=== PATIENT | female | born 1965 | race Caucasian/White ===

== ENCOUNTER 2016-12-04 21:15 | Emergency (ER) | payer OTHER ==
[2016-12-04 21:50] VITALS: BP 118/91
[2016-12-04 22:27] LABS: Budding Yeast Present (Absent); Urine Bacteria 1+ (Absent); Urine Bilirubin Negative (Negative); Urine Glucose Negative (Negative); Urine Nitrite Negative (Negative)
[2016-12-04] MEDS ORDERED: Sulfamethox/Trimethoprim DS 800/160* TAB PO ONE (22:40)
[2016-12-04] MEDS ORDERED: Phenazopyridine TAB* 100 MG PO ONE ×2 (22:40→22:41)
--- NOTE | 2016-12-04 23:15 | ED ---
GI/ HPI - HPI Summary HPI Summary: Patient presents to ED with burning, urgency, frequency and dark urine x 3 days. She has been trying AZO without relief. States these symptoms have been getting worse, and now is endorsing some right sided back pain. Denies fever, chills or tremors. Has hx of UTI symptoms which improve with antibiotics. She states this is similar to her previous UTI's. Denies erythema around the labia. Denies discharge. No hx of STD, PID or surgeries. - History of Current Complaint Chief Complaint: EDUrogenitalProblems Time Seen by Provider: 12/04/16 22:40 Stated Complaint: BLADDER INFECTION Hx Obtained From: Patient Onset/Duration: Started Days Ago Timing: Intermittent Severity: Moderate Current Severity: Moderate Pain Intensity: 8 Location of Pain: Suprapubic Pain Characteristics: Cramping, Burning Pain Radiates to: Flank - right Associated Signs and Symptoms: Positive: Flank Pain, UTI Symptoms Aggravating Factor(s): Urination Alleviating Factor(s): Nothing - Risk Factors GI Bleed Risk Factor(s): Negative Spontaneous AB Risk Factor(s): Negative Placental Abruption Risk Factor(s): Negative - Allergy/Home Medications Allergies/Adverse Reactions: Allergies Allergy/AdvReac Type Severity Reaction Status Date / Time No Known Allergies Allergy Verified 09/17/14 08:05 PMH/Surg Hx/FS Hx/Imm Hx Previously Healthy: Yes Endocrine/Hematology History: Denies: Hx Diabetes Cardiovascular History: Denies: Hx Hypertension, Hx Pacemaker/ICD Respiratory History: Reports: Other Respiratory Problems/Disorders - HX PNEUMONIA SEVERAL TIMES Denies: Hx Asthma Sensory History: Denies: Hx Hearing Aid Psychiatric History: Denies: Hx Panic Disorder - Surgical History Surgery Procedure, Year, and Place: TONSILS, Infectious Disease History: No Infectious Disease History: Denies: Traveled Outside the [place] in Last 30 Days - Social History Occupation: Employed Full-time Lives: With Family Alcohol Use: Rare Substance Use Type: Reports: None Smoking Status (MU): Never Smoked Tobacco Review of Systems Constitutional: Negative Cardiovascular: Negative Respiratory: Negative Gastrointestinal: Negative Positive: see HPI, burning, frequency, flank pain - right flank, hematuria, pain , urgency Musculoskeletal: Negative Skin: Negative Neurological: Negative Psychological: Normal All Other Systems Reviewed And Are Negative: Yes Physical Exam Triage Information Reviewed: Yes Vital Signs On Initial Exam: Initial Vitals Temp Pulse Resp BP Pulse Ox 97.9 F 73 14 118/91 100 12/04/16 21:43 12/04/16 21:43 12/04/16 21:43 12/04/16 21:43 12/04/16 21:43 Appearance: Positive: Well-Appearing, No Pain Distress Skin: Positive: Warm, Skin Color Reflects Adequate Perfusion Head/Face: Positive: Normal Head/Face Inspection Eyes: Positive: Normal, EOMI, RAMON ENT: Positive: Normal ENT inspection, Hearing grossly normal Neck: Positive: Supple, Nontender Respiratory/Lung Sounds: Positive: Breath Sounds Present Cardiovascular: Positive: Normal Abdomen Description: Positive: Other: - no CVA tenderness bilaterally, no mcburneys point Bowel Sounds: Positive: Present Musculoskeletal: Positive: Normal, Strength/ROM Intact Neurological: Positive: Normal Psychiatric: Positive: Normal Diagnostics - Vital Signs Vital Signs Temp Pulse Resp BP Pulse Ox 12/04/16 21:43 97.9 F 73 14 118/91 100 - Laboratory Lab Results: Lab Results 12/04/16 Range/Units 21:55 Urine Color Yellow Urine Appearance Cloudy Urine pH 5.0 (5-9) Ur Specific Blessing 1.015 (1.010-1.030) Urine Protein 1+(30 mg/dl) H (Negative) Urine Ketones Negative (Negative) Urine Blood 2+ H (Negative) Urine Nitrate Negative (Negative) Urine Bilirubin Negative (Negative) Urine Urobilinogen Negative (Negative) Ur Leukocyte Esterase 3+ H (Negative) Urine WBC (Auto) 3+(>20/hpf) H (Absent) Urine RBC (Auto) 3+(>10/hpf) H (Absent) Urine Bacteria 1+ H (Absent) Urine Yeast Present H (Absent) Urine Glucose Negative (Negative) Urine Ascorbic Acid * H (Negative) Lab Statement: Any lab studies that have been ordered have been reviewed, and results considered in the medical decision making process. GIGU Course/Dx - Course Course Of Treatment: Patient with UTI symptoms and UA showing WBC, leuks and RBC 's. No fever, CVA tenderness or other concerning symptoms for pyelo. Will however treat with 5 days of bactrim instead of 3 d/t RBC's in urine and patient c/o right flank pain. Pyridium given as analgesic. Culture sent. Will follow up if needed for sensitivities. - Diagnoses Differential Diagnoses - Female: Cervicitis, Pyelonephritis, Urinary Tract Infection, Vaginitis Provider Diagnoses: Urinary tract infection - Additional Visit Information Is Visit Related: No Discharge - Discharge Plan Condition: Stable Disposition: HOME Prescriptions: Phenazopyridine TAB* [Pyridium TAB*] 100 mg PO TID #20 tab Sulfamethox/Trimethoprim DS* [Bactrim DS 800/160 TAB*] 1 tab PO BID #10 tab Patient Education Materials: Phenazopyridine (By mouth), Urinary Tract Infection in Women (ED) Referrals: Karen Nelson NP [Primary Care Provider] - Additional Instructions: Dx. Urinary Tract Infection Drink plenty of fluids. Supplement with cranberry or pandey juice. You may also take an over the counter cranberry supplement. If you have any questions about this, you may ask your pharmacist. If your symptoms have not improved in 1- 2 days, you develop a fever or worsening back pain, please return to , the emergency room, or call your PCP. Please take any medications prescribed to you as directed. Pyridium: This medication is used to treat pain, burning, increased urination, and increased urge to urinate. These symptoms are usually caused by infection, injury, surgery, catheter, or other conditions that irritate the lower urinary tract. Pyridium will treat the symptoms of a urinary tract infection, but this medication does not treat the actual infection. Take the antibiotic that your doctor prescribes to treat your infection. Pyridium will most likely darken the color of your urine to an orange or red color. This is a normal effect and is not cause for alarm unless you have other symptoms such as pale or yellowed skin, fever, stomach pain, nausea, and vomiting. Darkened urine may also cause stains to your underwear, which may or may not be removed by laundering. It can also permanently stain soft contact lenses, and you should not wear them while taking this medicine.
--- NOTE | 2016-12-07 14:43 | ED ---
Progress - Progress Note Progress Note: PT'S URINE CX REVEALS ESBL E. COLI - PT DC'D W/ BACTRIM DS TO WHICH ORGANISM IS SENSITIVE - NO MEDICATION CHANGES AT THIS TIME AND F/U DIRECTED. Course/Dx - Course Course Of Treatment: Patient with UTI symptoms and UA showing WBC, leuks and RBC 's. No fever, CVA tenderness or other concerning symptoms for pyelo. Will however treat with 5 days of bactrim instead of 3 d/t RBC's in urine and patient c/o right flank pain. Pyridium given as analgesic. Culture sent. Will follow up if needed for sensitivities. - Diagnoses Provider Diagnoses: Urinary tract infection Is Visit Related: No Addendum entered and electronically signed by Cristiane Ma PA 12/08/16 21: 35: ED Addendum Addendum: final culture shows sensitive to bactrim so can continue
== END 2016-12-04 23:27 | disposition home or self-care (01) ==
LOC: ED 21:15
DX: N39.0 Urinary tract infection, site not specified (principal)
CPT/HCPCS: 81003; 81015; 87077; 87086; 87186; 99282; A9270-GY